=== PATIENT | male | born 1985 | race Caucasian/White ===

== ENCOUNTER 2018-12-17 22:52 | Emergency (ER) | payer MEDICAID ==
[~2018-12-17] VITALS: Ht 172.7 cm; Wt 75.0 kg
[2018-12-17] MEDS ORDERED: LORAZEPAM 1MG TABLET PO ONE (23:45)
[2018-12-18] MEDS ORDERED: FOLIC ACID 1 MG, THIAMINE HCL 100 MG, MVI, ADULT NO.1 10 ML in DEXTROSE 5% WATER 1,000 ML IV ONE ×4 (02:15)
[2018-12-18] MEDS ORDERED: CHLORDIAZEPOXIDE 25MG CAPSULE PO ONE ×2 (07:15→21:00)
[2018-12-18 07:22] LABS: BASOPHILS % 2.7 % (0.0-2.0); EOSINOPHILS % 1.6 % (0.0-5.0); HEMATOCRIT. 40.2 % (42.0-52.0); HEMOGLOBIN. 13.8 g/dL (14.0-18.0); LYMPHOCYTES % 51.5 % (20.0-50.0); MEAN CORPUSCULAR HEMOGLOBIN 31.2 pg (28.0-32.0); MEAN CORPUSCULAR VOLUME 90.5 fL (80.0-94.0); MEAN PLATELET VOLUME 6.9 fl (7.4-10.4); MONOCYTES % 5.2 % (2.0-8.0); PLATELET 240 x1000/uL (130-400); RED BLOOD CELL COUNT 4.44 mill/uL (4.7-6.1)
[2018-12-18 07:28] LABS: CHLORIDE 102 mEq/L (98-107)
[2018-12-18] MEDS ORDERED: CHLORDIAZEPOXIDE 5 MG CAPSULE PO ONE (07:30)
[2018-12-18 07:34] LABS: ETHANOL BLOOD 209 mg/dL
[2018-12-18 09:41] LABS: *AMPHETAMINES SCREEN URINE NEGATIVE (NEGATIVE); *BARBITURATES SCREEN URINE NEGATIVE (NEGATIVE); *BENZODIAZEPINES SCREEN URINE PRESUMTIVE POSITIVE (NEGATIVE); *COCAINE SCREEN URINE NEGATIVE (NEGATIVE); CANNABINOID URINE SCREEN NEGATIVE (NEGATIVE); METHADONE URINE SCREEN NEGATIVE (NEGATIVE); OPIATES URINE SCREEN NEGATIVE (NEGATIVE); PHENCYCLIDINE URINE SCREEN NEGATIVE (NEGATIVE)
[2018-12-18] MEDS ORDERED: LORAZEPAM 0.5MG TABLET PO ONE (10:15)
[2018-12-18] MEDS ORDERED: LORAZEPAM 2MG/ML CPJ IV ONE ×2 (15:15→21:00)
[2018-12-18] MEDS ORDERED: METOCLOPRAMIDE HCL 10MG/2ML VIAL IV ONE (21:00)
[2018-12-19 08:34] VITALS: BP 127/83
== END 2018-12-19 08:37 | disposition home or self-care (01) ==
LOC: ER 22:52
DX: F10.129 Alcohol abuse with intoxication, unspecified (principal); Y90.0 Blood alcohol level of less than 20 mg/100 ml; E11.9 Type 2 diabetes mellitus without complications
CPT/HCPCS: 36415; 80053; 80305; 80320; 82962; 85025; 96365; 96366; 96375; 96376; 99284; J2060; J2765; J3411; J3490; J7070; G0480

== ENCOUNTER 2018-12-27 09:35 | Emergency (ER) | payer MEDICAID ==
[~2018-12-27] VITALS: Ht 170.2 cm; Wt 65.0 kg
[2018-12-27] MEDS ORDERED: ONDANSETRON HCL 4MG/2ML INJ IV STA (10:02)
[2018-12-27] MEDS ORDERED: SODIUM CHLORIDE 0.9% 1,000 ML IV ONE ×2 (10:02→12:02)
[2018-12-27 10:13] LABS: BASOPHILS % 1.5 % (0.0-2.0); EOSINOPHILS % 0.8 % (0.0-5.0); HEMATOCRIT. 44.5 % (42.0-52.0); HEMOGLOBIN. 15.3 g/dL (14.0-18.0); LYMPHOCYTES % 46.8 % (20.0-50.0); MEAN CORPUSCULAR HEMOGLOBIN 31.4 pg (28.0-32.0); MEAN CORPUSCULAR VOLUME 91.6 fL (80.0-94.0); MEAN PLATELET VOLUME 8.2 fl (7.4-10.4); NEUTROPHILS % 45.9 % (40.0-76.0); PLATELET 97 x1000/uL (130-400); RED BLOOD CELL COUNT 4.85 mill/uL (4.7-6.1)
[2018-12-27] MEDS ORDERED: FAMOTIDINE 20MG/2ML VIAL IV ONE (10:15)
[2018-12-27 10:23] LABS: CHLORIDE 95 mEq/L (98-107)
[2018-12-27 10:38] LABS: ETHANOL BLOOD 467 mg/dL
[2018-12-27 12:30] LABS: CLARITY URINE CLEAR (CLEAR); COLOR URINE YELLOW (YELLOW); KETONES URINE NEGATIVE (NEGATIVE); LEUKOCYTE ESTERASE URINE NEGATIVE (NEGATIVE); NITRITE URINE NEGATIVE (NEGATIVE); OCCULT BLOOD URINE NEGATIVE (NEGATIVE); PROTEIN URINE NEGATIVE (NEGATIVE); SPECIFIC GRAVITY URINE 1.017 (1.005-1.030); UROBILINOGEN URINE 0.2 E.U./dL (0.2-1.0)
[2018-12-27 12:51] LABS: *BARBITURATES SCREEN URINE NEGATIVE (NEGATIVE); CANNABINOID URINE SCREEN NEGATIVE (NEGATIVE)
[2018-12-27 12:52] LABS: *AMPHETAMINES SCREEN URINE NEGATIVE (NEGATIVE); *BENZODIAZEPINES SCREEN URINE PRESUMTIVE POSITIVE (NEGATIVE); *COCAINE SCREEN URINE NEGATIVE (NEGATIVE); METHADONE URINE SCREEN NEGATIVE (NEGATIVE); OPIATES URINE SCREEN NEGATIVE (NEGATIVE); PHENCYCLIDINE URINE SCREEN NEGATIVE (NEGATIVE)
[2018-12-27 15:45] VITALS: BP 128/67
== END 2018-12-27 15:46 | disposition home or self-care (01) ==
LOC: ER 09:35
DX: F10.129 Alcohol abuse with intoxication, unspecified (principal); Y90.8 Blood alcohol level of 240 mg/100 ml or more; K29.20 Alcoholic gastritis without bleeding; R74.0 Nonspecific elevation of levels of transaminase and lactic acid dehydrogenase [LDH]; E11.65 Type 2 diabetes mellitus with hyperglycemia; E87.6 Hypokalemia; F32.9 Major depressive disorder, single episode, unspecified
CPT/HCPCS: 36415; 80053; 80305; 80320; 81003; 82962; 83690; 85025; 96361; 96374; 96375; 99283; J2405; J3490; J7030; Z7610; G0480

== ENCOUNTER 2019-01-27 15:31 | Emergency (ER) | payer MEDICAID ==
[~2019-01-27] VITALS: Ht 177.8 cm; Wt 82.0 kg
[2019-01-27] MEDS ORDERED: SODIUM CHLORIDE 0.9% 1,000 ML IV ONE (15:59)
[2019-01-27 16:55] LABS: BASOPHILS % 3.2 % (0.0-2.0); CLARITY URINE CLEAR (CLEAR); COLOR URINE YELLOW (YELLOW); EOSINOPHILS % 1.3 % (0.0-5.0); HEMATOCRIT. 42.5 % (42.0-52.0); HEMOGLOBIN. 14.7 g/dL (14.0-18.0); KETONES URINE NEGATIVE (NEGATIVE); LEUKOCYTE ESTERASE URINE NEGATIVE (NEGATIVE); LYMPHOCYTES % 43.3 % (20.0-50.0); MEAN CORPUSCULAR HEMOGLOBIN 32.9 pg (28.0-32.0); MEAN CORPUSCULAR VOLUME 95.2 fL (80.0-94.0); MEAN PLATELET VOLUME 9.3 fl (7.4-10.4); MONOCYTES % 4.8 % (2.0-8.0); NEUTROPHILS % 47.4 % (40.0-76.0); NITRITE URINE NEGATIVE (NEGATIVE); OCCULT BLOOD URINE NEGATIVE (NEGATIVE); PH URINE 5.5 (4.5-8.0); PLATELET 92 x1000/uL (130-400); PROTEIN URINE NEGATIVE (NEGATIVE); RED BLOOD CELL COUNT 4.47 mill/uL (4.7-6.1); RED CELL DISTRIBUTION WIDTH 15.4 % (11.6-14.6); SPECIFIC GRAVITY URINE 1.006 (1.005-1.030); UROBILINOGEN URINE 0.2 E.U./dL (0.2-1.0)
[2019-01-27 17:36] LABS: CHLORIDE 111 mEq/L (98-107)
[2019-01-27 17:42] LABS: *AMPHETAMINES SCREEN URINE NEGATIVE (NEGATIVE)
[2019-01-27 17:43] LABS: *BARBITURATES SCREEN URINE NEGATIVE (NEGATIVE); *BENZODIAZEPINES SCREEN URINE NEGATIVE (NEGATIVE); *COCAINE SCREEN URINE NEGATIVE (NEGATIVE); CANNABINOID URINE SCREEN NEGATIVE (NEGATIVE); METHADONE URINE SCREEN NEGATIVE (NEGATIVE); OPIATES URINE SCREEN NEGATIVE (NEGATIVE); PHENCYCLIDINE URINE SCREEN NEGATIVE (NEGATIVE)
[2019-01-27 18:04] LABS: ETHANOL BLOOD 366 mg/dL
[2019-01-27] MEDS ORDERED: POTASSIUM CHLORIDE 20MEQ TABLET SR PO NR (18:20)
[2019-01-27 21:05] VITALS: BP 103/51
== END 2019-01-27 21:12 | disposition home or self-care (01) ==
LOC: ER 15:31
DX: F10.129 Alcohol abuse with intoxication, unspecified (principal); Y90.8 Blood alcohol level of 240 mg/100 ml or more; R45.851 Suicidal ideations; E87.6 Hypokalemia; R74.0 Nonspecific elevation of levels of transaminase and lactic acid dehydrogenase [LDH]; E11.9 Type 2 diabetes mellitus without complications; F32.9 Major depressive disorder, single episode, unspecified
CPT/HCPCS: 36415; 80053; 80305; 80307; 80320; 80329; 81003; 83690; 85025; 96360; 99284; J7030; G0480

== ENCOUNTER 2019-02-08 00:26 | Inpatient (IN) | payer MEDICAID ==
[2019-02-08] VITALS (38 sets, daily range): BP systolic 62–175; BP diastolic 26–138
[~2019-02-08] VITALS: Ht 165.1 cm; Wt 68.5 kg
[2019-02-08] MEDS ORDERED: ONDANSETRON HCL 4MG/2ML INJ IV STA (00:33)
[2019-02-08] MEDS ORDERED: OCTREOTIDE ACETATE 50 MCG/ML 1ML IV STA (00:33)
[2019-02-08] MEDS ORDERED: SODIUM CHLORIDE 0.9% 1,000 ML IV ONE (00:33)
[2019-02-08] MEDS ORDERED: OCTREOTIDE 1,000 MCG in SODIUM CHLORIDE 0.9% 100 ML IV STA (00:33)
[2019-02-08] MEDS ORDERED: CEFTRIAXONE 1 G PREMIX 50 ML IV ONE (00:45)
[2019-02-08] MEDS ORDERED: FAMOTIDINE 20MG/2ML VIAL IV ONE (00:45)
[2019-02-08] MEDS ORDERED: LORAZEPAM 2MG/ML CPJ IV ONE (01:15)
[2019-02-08 01:47] LABS: BASOPHILS % 0.1 % (0.0-2.0); HEMATOCRIT. 39.7 % (42.0-52.0); HEMOGLOBIN. 13.7 g/dL (14.0-18.0); LYMPHOCYTES % 10.1 % (20.0-50.0); MEAN CORPUSCULAR HEMOGLOBIN 32.1 pg (28.0-32.0); MEAN CORPUSCULAR VOLUME 92.9 fL (80.0-94.0); MEAN PLATELET VOLUME 8.7 fl (7.4-10.4); MONOCYTES % 6.6 % (2.0-8.0); NEUTROPHILS % 83.2 % (40.0-76.0); PLATELET 72 x1000/uL (130-400); RED BLOOD CELL COUNT 4.27 mill/uL (4.7-6.1); RED CELL DISTRIBUTION WIDTH 13.8 % (11.6-14.6)
[2019-02-08 01:52] LABS: CHLORIDE 88 mEq/L (98-107)
[2019-02-08 01:56] LABS: INR 1.3; PARTIAL THROMBOPLASTIN TIME 26.1 sec (23.4-31.0); PROTHROMBIN TIME 13.4 sec (9.6-11.0)
[2019-02-08] MEDS ORDERED: KCL 20MEQ/100ML PREMIX 100 ML IV SCH (04:00)
[2019-02-08] MEDS ORDERED: GLIP10TA10 MT (05:14)
[2019-02-08] MEDS ORDERED: LORA2TAB2 MT (05:14)
[2019-02-08] MEDS ORDERED: GUAIFENESIN 200MG/10ML SUGAR FREE UDC PO PRN (07:45)
[2019-02-08] MEDS ORDERED: ACETAMINOPHEN 325MG TABLET PO PRN (07:45)
[2019-02-08] MEDS ORDERED: MAGNESIUM/ALUMINUM HYDROXIDE/SIMETHICONE 30ML UDC PO PRN (07:45)
[2019-02-08] MEDS ORDERED: OMEPRAZOLE 20MG CAPSULE EXTENDED RELEASE PO SCH (07:45)
[2019-02-08] MEDS ORDERED: IPRATROPIUM/ALBUTEROL 0.5-3(2.5)MG/3ML NEB INH PRN (07:45)
[2019-02-08] MEDS ORDERED: CLONIDINE 0.1MG TABLET PO PRN (07:45)
[2019-02-08] MEDS: ONDANSETRON HCL 4MG/2ML INJ IV PRN ×2 (08:07→23:41)
[2019-02-08] MEDS ORDERED: MVI, ADULT NO.1 10 ML, FOLIC ACID 1 MG, THIAMINE HCL 100 MG in SODIUM CHLORIDE 0.9% 1,0... IV SCH ×4 (08:30)
[2019-02-08] MEDS ORDERED: KCL 20MEQ/100ML PREMIX 100 ML IV NR (08:30)
[2019-02-08] MEDS: LORAZEPAM 2MG/ML CPJ IV PRN ×4 (08:50→20:51)
[2019-02-08 09:13] LABS: BASOPHILS % 0.3 % (0.0-2.0); HEMATOCRIT. 35.1 % (42.0-52.0); HEMOGLOBIN. 12.2 g/dL (14.0-18.0); LYMPHOCYTES % 8.7 % (20.0-50.0); MEAN CORPUSCULAR HEMOGLOBIN 32.1 pg (28.0-32.0); MEAN CORPUSCULAR VOLUME 92.2 fL (80.0-94.0); MEAN PLATELET VOLUME 8.8 fl (7.4-10.4); MONOCYTES % 5.2 % (2.0-8.0); NEUTROPHILS % 85.8 % (40.0-76.0); PLATELET 77 x1000/uL (130-400)
[2019-02-08 09:25] LABS: CHLORIDE 89 mEq/L (98-107)
[2019-02-08 09:32] LABS: TOTAL IRON BINDING CAPACITY 234 ug/dL (250-450)
[2019-02-08 09:48] LABS: ETHANOL BLOOD 304 mg/dL
[2019-02-08] MEDS ORDERED: NON FORMULARY PATIENT HOME MED XX SCH (10:00)
[2019-02-08] MEDS ORDERED: SODIUM CHLORIDE 0.9% 1,000 ML IV NR ×2 (10:00)
[2019-02-08 10:28] LABS: FOLIC ACID (FOLATE) SERUM 13.2 ng/mL (>5.38)
[2019-02-08] MEDS: PANTOPRAZOLE 80 MG in SODIUM CHLORIDE 0.9% 100 ML IV SCH ×2 (10:43→20:53)
[2019-02-08] MEDS: CEFTRIAXONE 1 G PREMIX 50 ML IV SCH (10:43)
[2019-02-08] MEDS: DEXT 5%/0.9% NACL KCL 20MEQ/L 1,000 ML IV SCH ×2 (10:43→17:17)
[2019-02-08] MEDS ORDERED: METOCLOPRAMIDE HCL 10MG/2ML VIAL IV NR (10:45)
[2019-02-08] MEDS ORDERED: DEXTROSE 50% WATER 50ML SYRINGE IV PRN (14:15)
[2019-02-08 15:34] LABS: CLARITY URINE CLEAR (CLEAR); COLOR URINE YELLOW (YELLOW); KETONES URINE 3+ (NEGATIVE); LEUKOCYTE ESTERASE URINE NEGATIVE (NEGATIVE); NITRITE URINE NEGATIVE (NEGATIVE); OCCULT BLOOD URINE NEGATIVE (NEGATIVE); PROTEIN URINE 1+ (NEGATIVE); SPECIFIC GRAVITY URINE 1.028 (1.005-1.030)
[2019-02-08 15:55] LABS: *AMPHETAMINES SCREEN URINE NEGATIVE (NEGATIVE); *BARBITURATES SCREEN URINE NEGATIVE (NEGATIVE); *BENZODIAZEPINES SCREEN URINE NEGATIVE (NEGATIVE); *COCAINE SCREEN URINE NEGATIVE (NEGATIVE)
[2019-02-08 15:56] LABS: CANNABINOID URINE SCREEN NEGATIVE (NEGATIVE); METHADONE URINE SCREEN NEGATIVE (NEGATIVE); OPIATES URINE SCREEN NEGATIVE (NEGATIVE); PHENCYCLIDINE URINE SCREEN NEGATIVE (NEGATIVE)
[2019-02-08 17:13] LABS: HEMATOCRIT 29.3 % (42.0-52.0); HEMOGLOBIN 10.2 g/dL (14.0-18.0)
[2019-02-08] MEDS: METOCLOPRAMIDE HCL 10MG/2ML VIAL IV SCH ×2 (17:38→23:40)
[2019-02-08] MEDS: BLOOD SUGAR DIAGNOSTIC STRIP TEST SCH ×2 (17:40→23:41)
[2019-02-08] MEDS ORDERED: INSULIN LISPRO 100 UNITS/ML SUBCUT SCH (18:00)
[2019-02-08 23:26] LABS: HEMATOCRIT 28.3 % (42.0-52.0); HEMOGLOBIN 10.3 g/dL (14.0-18.0)
[2019-02-08] MEDS: INSULIN LISPRO 100 UNITS/ML SUBCUT SCH (23:56)
[2019-02-09] VITALS (61 sets, daily range): BP systolic 100–159; BP diastolic 38–119
[2019-02-09] MEDS: LORAZEPAM 2MG/ML CPJ IV PRN ×2 (01:09→08:14)
[2019-02-09] MEDS: DEXT 5%/0.9% NACL KCL 20MEQ/L 1,000 ML IV SCH ×3 (03:45→23:57)
[2019-02-09 05:03] LABS: BASOPHILS % 0.1 % (0.0-2.0); HEMATOCRIT. 27.7 % (42.0-52.0); HEMOGLOBIN. 9.9 g/dL (14.0-18.0); LYMPHOCYTES % 14.9 % (20.0-50.0); MEAN CORPUSCULAR HEMOGLOBIN 32.8 pg (28.0-32.0); MEAN CORPUSCULAR VOLUME 91.8 fL (80.0-94.0); MEAN PLATELET VOLUME 9.3 fl (7.4-10.4); MONOCYTES % 5.6 % (2.0-8.0); NEUTROPHILS % 79.4 % (40.0-76.0); RED BLOOD CELL COUNT 3.02 mill/uL (4.7-6.1); RED CELL DISTRIBUTION WIDTH 14.1 % (11.6-14.6)
[2019-02-09 05:04] LABS: CHLORIDE 104 mEq/L (98-107)
[2019-02-09] MEDS: ONDANSETRON HCL 4MG/2ML INJ IV PRN ×2 (05:33→09:50)
[2019-02-09] MEDS: METOCLOPRAMIDE HCL 10MG/2ML VIAL IV SCH ×4 (05:33→23:57)
[2019-02-09] MEDS: BLOOD SUGAR DIAGNOSTIC STRIP TEST SCH ×4 (06:00→23:57)
[2019-02-09] MEDS: PANTOPRAZOLE 80 MG in SODIUM CHLORIDE 0.9% 100 ML IV SCH (07:06)
[2019-02-09] MEDS: INSULIN LISPRO 100 UNITS/ML SUBCUT SCH ×4 (07:07→23:58)
[2019-02-09] MEDS ORDERED: POTASSIUM CHLORIDE 10MEQ TABLET SR PO NR (08:00)
[2019-02-09] MEDS: CEFTRIAXONE 1 G PREMIX 50 ML IV SCH (08:15)
[2019-02-09] MEDS: LACTULOSE 20G/30ML UDC PO SCH (09:50)
[2019-02-09] MEDS ORDERED: CHLORDIAZEPOXIDE 25MG CAPSULE PO NR (10:00)
[2019-02-09] MEDS ORDERED: BACTERIOSTATIC SODIUM CHLORIDE 0.9% 30ML VIAL IJ ONE (10:00)
[2019-02-09] MEDS ORDERED: SIMETHICONE 40 MG/0.6 ML 30ML ONE (10:00)
[2019-02-09] MEDS ORDERED: CHLORDIAZEPOXIDE 5 MG CAPSULE PO NR (10:15)
[2019-02-09 10:42] LABS: PLATELET 36 x1000/uL (130-400)
[2019-02-09] MEDS ORDERED: CHLORDIAZEPOXIDE 25MG CAPSULE PO SCH (14:00)
[2019-02-09] MEDS: CHLORDIAZEPOXIDE 5 MG CAPSULE PO SCH ×2 (14:00→21:24)
[2019-02-09] MEDS ORDERED: FENTANYL CITRATE/PF 50MCG/ML 2ML VIAL ONE (15:15)
[2019-02-09] MEDS ORDERED: DIPHENHYDRAMINE 50MG/ML VIAL ONE (15:15)
[2019-02-09] MEDS ORDERED: MIDAZOLAM HCL 5 MG/5 ML VIAL ONE (15:16)
[2019-02-09] MEDS ORDERED: DIPHENHYDRAMINE 50MG/ML VIAL IV NR (15:58)
[2019-02-09] MEDS ORDERED: MIDAZOLAM HCL 5 MG/5 ML VIAL IV PRN (16:03)
[2019-02-09] MEDS ORDERED: FENTANYL CITRATE/PF 50MCG/ML 2ML VIAL IV PRN (16:06)
[2019-02-09 16:25] LABS: HEMOGLOBIN 9.8 g/dL (14.0-18.0)
[2019-02-09 16:43] LABS: BASOPHILS % 0.3 % (0.0-2.0); EOSINOPHILS % 0.1 % (0.0-5.0); HEMOGLOBIN. 9.7 g/dL (14.0-18.0); LYMPHOCYTES % 17.2 % (20.0-50.0); MEAN CORPUSCULAR HEMOGLOBIN 32.9 pg (28.0-32.0); MEAN CORPUSCULAR VOLUME 91.3 fL (80.0-94.0); MEAN PLATELET VOLUME 9.2 fl (7.4-10.4); MONOCYTES % 6.9 % (2.0-8.0); NEUTROPHILS % 75.5 % (40.0-76.0); RED BLOOD CELL COUNT 2.95 mill/uL (4.7-6.1); RED CELL DISTRIBUTION WIDTH 14.3 % (11.6-14.6)
[2019-02-09 16:45] LABS: PLATELET 32 x1000/uL (130-400)
[2019-02-09] MEDS: SUCRALFATE 1 G/10 ML UDC PO SCH ×2 (18:29→21:23)
[2019-02-09] MEDS: OMEPRAZOLE 20MG CAPSULE EXTENDED RELEASE PO SCH (21:23)
[2019-02-10] VITALS (33 sets, daily range): BP systolic 101–158; BP diastolic 65–114
[2019-02-10 04:48] LABS: BASOPHILS % 0.3 % (0.0-2.0); EOSINOPHILS % 0.6 % (0.0-5.0); HEMATOCRIT. 28.2 % (42.0-52.0); HEMOGLOBIN. 10.2 g/dL (14.0-18.0); LYMPHOCYTES % 21.9 % (20.0-50.0); MEAN CORPUSCULAR HEMOGLOBIN 32.7 pg (28.0-32.0); MEAN CORPUSCULAR VOLUME 90.7 fL (80.0-94.0); MEAN PLATELET VOLUME 9.2 fl (7.4-10.4); MONOCYTES % 5.6 % (2.0-8.0); NEUTROPHILS % 71.6 % (40.0-76.0); RED BLOOD CELL COUNT 3.11 mill/uL (4.7-6.1)
[2019-02-10 04:50] LABS: CHLORIDE 100 mEq/L (98-107)
[2019-02-10 05:42] LABS: PLATELET 25 x1000/uL (130-400)
[2019-02-10] MEDS: BLOOD SUGAR DIAGNOSTIC STRIP TEST SCH ×3 (06:23→16:52)
[2019-02-10] MEDS: METOCLOPRAMIDE HCL 10MG/2ML VIAL IV SCH ×2 (06:34→13:24)
[2019-02-10] MEDS: CHLORDIAZEPOXIDE 5 MG CAPSULE PO SCH ×2 (06:34→13:24)
[2019-02-10] MEDS: OMEPRAZOLE 20MG CAPSULE EXTENDED RELEASE PO SCH (06:35)
[2019-02-10] MEDS: INSULIN LISPRO 100 UNITS/ML SUBCUT SCH ×3 (06:35→16:52)
[2019-02-10] MEDS: SUCRALFATE 1 G/10 ML UDC PO SCH ×3 (06:37→15:58)
[2019-02-10] MEDS ORDERED: POTASSIUM CHLORIDE INJ 40 MEQ in SODIUM CHLORIDE 0.45% 1,000 ML IV SCH ×2 (08:00→08:30)
[2019-02-10] MEDS ORDERED: POTASSIUM CHLORIDE INJ 40 MEQ in DEXT 5% WATER 500 ML IV NR (09:00)
[2019-02-10] MEDS ORDERED: POTASSIUM CHLORIDE 20MEQ TABLET SR PO SCH (09:30)
[2019-02-10] MEDS: CEFTRIAXONE 1 G PREMIX 50 ML IV SCH (09:36)
[2019-02-10] MEDS ORDERED: FOLIC ACID 1MG TABLET PO SCH (09:45)
[2019-02-10] MEDS ORDERED: THIAMINE HCL 100MG TABLET PO SCH (09:45)
[2019-02-10] MEDS ORDERED: MULTIVITAMINS,THER W-MINERALS TABLET PO SCH (09:45)
[2019-02-10] MEDS: LACTULOSE 20G/30ML UDC PO SCH (09:55)
[2019-02-10] MEDS ORDERED: POTASSIUM CHLORIDE 20MEQ TABLET SR PO NR (15:45)
[2019-02-10] MEDS ORDERED: SODIUM CHLORIDE 0.9% 1,000 ML IV ONE (16:00)
[2019-02-11] MEDS ORDERED: THIAMINE HCL 100MG TABLET PO SCH (09:00)
== END 2019-02-10 17:30 | disposition home or self-care (01) | DRG 241 ==
LOC: ER 00:26 → MICUSO 03:54 → EDBEDREQTM 03:57 → EDBEDREQ 03:57 → ENRESERV 04:19
PROVIDERS: ADMIT Internal Medicine; ATTEND Internal Medicine
PROC: 0DJ08ZZ Inspection of Upper Intestinal Tract, Via Natural or Artificial Opening Endoscopic (ICD-10-PCS; principal; 2019-02-09)
DX: K29.71 Gastritis, unspecified, with bleeding (principal); D69.59 Other secondary thrombocytopenia; K22.11 Ulcer of esophagus with bleeding; E72.20 Disorder of urea cycle metabolism, unspecified; D62 Acute posthemorrhagic anemia; E11.65 Type 2 diabetes mellitus with hyperglycemia; K22.6 Gastro-esophageal laceration-hemorrhage syndrome; E83.51 Hypocalcemia; E87.2 Acidosis; F32.9 Major depressive disorder, single episode, unspecified; F10.229 Alcohol dependence with intoxication, unspecified; E87.6 Hypokalemia; F41.9 Anxiety disorder, unspecified; I10 Essential (primary) hypertension; K22.2 Esophageal obstruction; K70.40 Alcoholic hepatic failure without coma; K44.9 Diaphragmatic hernia without obstruction or gangrene; Z79.4 Long term (current) use of insulin; Z83.3 Family history of diabetes mellitus; Z87.11 Personal history of peptic ulcer disease; Z87.19 Personal history of other diseases of the digestive system
CPT/HCPCS: 36415; 71045; 74176; 80048; 80076; 80305; 80320; 82140; 82248; 82270; 82607; 82746; 82962; 83036; 83540; 83550; 83605; 83735; 84132; 84484; 85014; 85018; 86850; 86900; 86920; 93005; 93970; 96365; 96366; 96368; 96375; 99291; C1893; C9113; J0696; J1200; J1815; J2060; J2250; J2354; J2405; J2765; J3010; J3411; J3480; J3490; J7030; J7050; J7060; G0480

== ENCOUNTER 2019-04-30 10:47 | Emergency (ER) | payer MEDICAID ==
[~2019-04-30] VITALS: Ht 172.7 cm; Wt 64.0 kg
[~2019-04-30 10:47] MED LIST: GLIP10TA10 MT; LORA2TAB2 MT
[2019-04-30 10:53] VITALS: BP 107/73
[2019-04-30] MEDS ORDERED: SODIUM CHLORIDE 0.9% 1,000 ML IV ONE (11:06)
== END 2019-04-30 11:46 | disposition home or self-care (01) ==
LOC: ER 10:47
DX: F10.229 Alcohol dependence with intoxication, unspecified (principal); E11.65 Type 2 diabetes mellitus with hyperglycemia; F32.9 Major depressive disorder, single episode, unspecified; Y90.8 Blood alcohol level of 240 mg/100 ml or more
CPT/HCPCS: 99283; J7030

== ENCOUNTER 2019-04-30 12:56 | Emergency (ER) | payer MEDICAID ==
[~2019-04-30] VITALS: Ht 172.7 cm; Wt 64.0 kg
[2019-04-30 13:12] VITALS: BP 140/100
== END 2019-04-30 15:36 | disposition left against medical advice (07) ==
LOC: ER 12:56
DX: R73.9 Hyperglycemia, unspecified (principal); F10.129 Alcohol abuse with intoxication, unspecified; Z53.21 Procedure and treatment not carried out due to patient leaving prior to being seen by health care provider; Y90.9 Presence of alcohol in blood, level not specified

== ENCOUNTER 2019-10-07 12:41 | Emergency (ER) | payer MEDICAID ==
[~2019-10-07] VITALS: Ht 175.3 cm; Wt 80.0 kg
[2019-10-07] MEDS ORDERED: HALOPERIDOL LACTATE 5MG/ML VIAL IM ONE (13:45)
[2019-10-07] MEDS ORDERED: LORAZEPAM 2MG/ML CPJ IM ONE (13:45)
[2019-10-07 14:38] LABS: *AMPHETAMINES SCREEN URINE NEGATIVE (NEGATIVE); *BARBITURATES SCREEN URINE NEGATIVE (NEGATIVE); *BENZODIAZEPINES SCREEN URINE NEGATIVE (NEGATIVE); CANNABINOID URINE SCREEN NEGATIVE (NEGATIVE); METHADONE URINE SCREEN NEGATIVE (NEGATIVE); OPIATES URINE SCREEN NEGATIVE (NEGATIVE); PHENCYCLIDINE URINE SCREEN NEGATIVE (NEGATIVE)
[2019-10-07 14:39] LABS: *COCAINE SCREEN URINE NEGATIVE (NEGATIVE)
[2019-10-07 14:57] LABS: EOSINOPHILS % 1.1 % (0.0-5.0); HEMATOCRIT. 39.9 % (42.0-52.0); HEMOGLOBIN. 14.1 g/dL (14.0-18.0); LYMPHOCYTES % 37.3 % (20.0-50.0); MEAN CORPUSCULAR HEMOGLOBIN 32.5 pg (28.0-32.0); MEAN PLATELET VOLUME 7.6 fl (7.4-10.4); MONOCYTES % 4.1 % (2.0-8.0); NEUTROPHILS % 55.5 % (40.0-76.0); RED BLOOD CELL COUNT 4.33 mill/uL (4.7-6.1); RED CELL DISTRIBUTION WIDTH 17.1 % (11.6-14.6)
[2019-10-07 15:00] LABS: PLATELET 37 x1000/uL (130-400)
[2019-10-07 15:01] LABS: CHLORIDE 102 mEq/L (98-107)
[2019-10-07 15:46] LABS: ETHANOL BLOOD 473 mg/dL
[2019-10-08] MEDS ORDERED: CHLORDIAZEPOXIDE 25MG CAPSULE PO ONE (04:15)
[2019-10-08] MEDS ORDERED: LORAZEPAM 2MG/ML CPJ IV ONE (04:15)
[2019-10-08] MEDS ORDERED: LORAZEPAM 1MG TABLET PO ONE (04:45)
[2019-10-08 08:00] VITALS: BP 112/78
== END 2019-10-08 08:30 | disposition home or self-care (01) ==
LOC: ER 12:41
DX: F10.129 Alcohol abuse with intoxication, unspecified (principal); R45.851 Suicidal ideations; E11.9 Type 2 diabetes mellitus without complications; Y90.8 Blood alcohol level of 240 mg/100 ml or more
CPT/HCPCS: 36415; 80053; 80305; 80307; 80320; 80329; 85025; 96372; 99285; J1630; J2060; Z7610; G0480